=== PATIENT | male | born 1955 | race Asian ===

== ENCOUNTER 2024-08-03 17:07 | Inpatient (IN) | payer MEDICARE, MEDICAID ==
[~2024-08-03] VITALS: Ht 167.6 cm; Wt 70.3 kg
[~2024-08-03 17:07] MED LIST: CLOP75TA60 PO; LISI-893 PO; SIMV-261 PO
[2024-08-03] MEDS ORDERED: TAMS0.4C94 PO (18:14)
[2024-08-03] MEDS: ACETAMINOPHEN 500 MG TABLET PO ONE (18:46)
[2024-08-03 18:53] LABS: BASOPHILS % (AUTO) 0.3 % (0.0-2.0); EOSINOPHILS % (AUTO) 0.2 % (1.0-6.0); HEMOGLOBIN 14.8 g/dL (13.5-17.5); LYMPHOCYTES # (AUTO) 0.6 K/uL (1.0-4.8); LYMPHOCYTES % (AUTO) 8.1 % (22.0-44.0); MEAN CORPUSCULAR HEMOGLOBIN 28.2 pg (26.0-34.0); MEAN CORPUSCULAR HGB CONC 32.2 G/dL (31.0-37.0); MEAN CORPUSCULAR VOLUME 88 fL (80-100); MONOCYTES # (AUTO) 0.3 K/uL (0.1-1.0); MONOCYTES % (AUTO) 4.9 % (2.0-9.0); PLATELET COUNT (AUTO) 240 K/uL (150-450); RED BLOOD CELL COUNT(AUTO) 5.26 MIL/uL (4.50-5.90); RED CELL DISTRIBUTION WIDTH 13.9 % (11.5-14.5); WHITE BLOOD COUNT (AUTO) 6.9 K/uL (4.5-11.0)
[2024-08-03 18:54] LABS: COVID AG,FIA SOURCE NASAL SWAB
[2024-08-03 19:03] LABS: ANION GAP 10 mmol/L (8-16); CALCIUM, TOTAL 8.5 mg/dL (8.8-10.5); CARBON DIOXIDE 28 mmol/L (22-29); CHLORIDE 100 mmol/L (98-107); CREATININE 0.95 mg/dL (0.60-1.30); GLOMERULAR FILTR. RATE CALC > 60 mL/min (>60); GLUCOSE,RANDOM 166 mg/dL (70-110); POTASSIUM 3.6 mmol/L (3.5-5.1); SODIUM SERUM 138 mmol/L (136-145); UREA NITROGEN, BLOOD 10 mg/dL (7-18)
[2024-08-03 19:08] LABS: NEUTROPHILS % (AUTO) 86.5 % (40.0-70.0)
[2024-08-03 19:18] LABS: INFLUENZA TYPE A NEGATIVE FOR TYPE A (NEGATIVE); INFLUENZA TYPE B NEGATIVE FOR TYPE B (NEGATIVE); SARS-COV2 (COVID) ANTIGEN,FIA Negative (Negative)
[2024-08-03] MEDS: ASPIRIN 325 MG TABLET PO ONE (19:53)
[2024-08-03] MEDS: CLOPIDOGREL BISULFATE 75 MG TABLET PO ONE (19:54)
[2024-08-03 19:55] LABS: TROPONIN I-HIGH SENSITIVITY 54 ng/L (<76)
[2024-08-03] MEDS ORDERED: IOHEXOL 300 MG/ML 100 ML VIAL ONE (19:57)
[2024-08-03] MEDS ORDERED: 0.9% SODIUM CHLORIDE 10 ML SYRINGE IVP ONE (19:57)
[2024-08-03] MEDS ORDERED: SODIUM CHLORIDE 0.9% 100 ML ONE (19:57)
[2024-08-03] MEDS ORDERED: ZOLPIDEM TARTRATE 5 MG TABLET PO PRN (21:15)
[2024-08-03] MEDS ORDERED: MORPHINE SULFATE 2 MG/ML SYRINGE IVP PRN (21:15)
[2024-08-03] MEDS ORDERED: MAGNESIUM HYDROXIDE SUSPENSION 30 ML UDCUP PO PRN (21:15)
[2024-08-03] MEDS ORDERED: BISACODYL 10 MG RECTAL RECTAL SUPPOSITORY PR PRN (21:15)
[2024-08-03] MEDS ORDERED: ONDANSETRON HCL 4 MG/2 ML VIAL IVP PRN (21:15)
[2024-08-03] MEDS: HEPARIN SODIUM,PORCINE 5,000 UNITS/ML VIAL SQ SCH (23:12)
[2024-08-03 23:30] VITALS: BP 153/97; PULSE 69; RESP 17; TEMP 98.1; O2SAT 96
[2024-08-04 03:32] VITALS: BP 130/86; PULSE 66; RESP 16; TEMP 98.1; O2SAT 96
[2024-08-04] MEDS: ACETAMINOPHEN 325 MG TABLET PO PRN (03:37)
[2024-08-04 06:15] LABS: BASOPHILS % (AUTO) 0.4 % (0.0-2.0); EOSINOPHILS % (AUTO) 1.5 % (1.0-6.0); HEMOGLOBIN 14.9 g/dL (13.5-17.5); LYMPHOCYTES # (AUTO) 0.7 K/uL (1.0-4.8); LYMPHOCYTES % (AUTO) 12.8 % (22.0-44.0); MEAN CORPUSCULAR HEMOGLOBIN 28.8 pg (26.0-34.0); MEAN CORPUSCULAR HGB CONC 33.1 G/dL (31.0-37.0); MEAN CORPUSCULAR VOLUME 87 fL (80-100); MONOCYTES # (AUTO) 0.4 K/uL (0.1-1.0); MONOCYTES % (AUTO) 7.3 % (2.0-9.0); NEUTROPHILS # (AUTO) 4.3 K/uL (1.8-7.7); PLATELET COUNT (AUTO) 228 K/uL (150-450); RED BLOOD CELL COUNT(AUTO) 5.17 MIL/uL (4.50-5.90); RED CELL DISTRIBUTION WIDTH 13.6 % (11.5-14.5); WHITE BLOOD COUNT (AUTO) 5.5 K/uL (4.5-11.0)
[2024-08-04 06:39] LABS: ANION GAP 9 mmol/L (8-16); CALCIUM, TOTAL 8.7 mg/dL (8.8-10.5); CARBON DIOXIDE 27 mmol/L (22-29); CHLORIDE 104 mmol/L (98-107); CHOLESTEROL 166 mg/dL (131-200); CREATININE 0.79 mg/dL (0.60-1.30); GLOMERULAR FILTR. RATE CALC > 60 mL/min (>60); GLUCOSE,RANDOM 99 mg/dL (70-110); HDL CHOLESTEROL 56 mg/dL (40-60); LDL CHOL (CALC.) 96 mg/dL (0-130); POTASSIUM 3.5 mmol/L (3.5-5.1); SODIUM SERUM 140 mmol/L (136-145); THYROID STIMULATING HORMONE 0.69 uIU/mL (0.36-3.74); TRIGLYCERIDES 69 mg/dL (15-150); UREA NITROGEN, BLOOD 10 mg/dL (7-18)
[2024-08-04 08:00] VITALS: BP 131/78; PULSE 65; RESP 18; TEMP 97.8; O2SAT 98
[2024-08-04] MEDS: PANTOPRAZOLE SODIUM 40 MG DR TABLET PO SCH (09:17)
[2024-08-04] MEDS: ASPIRIN 81 MG CHEWABLE TABLET PO SCH (09:17)
[2024-08-04] MEDS: DOCUSATE SODIUM 100 MG CAPSULE PO SCH (09:17)
[2024-08-04 12:00] VITALS: BP 121/71; PULSE 70; RESP 16; TEMP 98.3; O2SAT 97
[2024-08-04 16:00] VITALS: BP 136/89; PULSE 70; RESP 15; TEMP 98.4; O2SAT 96
[2024-08-04] MEDS: HYDROCODONE/ACETAMINOPHEN 5-325 MG TABLET PO PRN (20:30)
[2024-08-04] MEDS: ATORVASTATIN CALCIUM 20 MG TABLET PO SCH (20:30)
[2024-08-04 20:33] VITALS: BP 126/73; PULSE 68; RESP 16; TEMP 98.5; O2SAT 98
[2024-08-04 22:40] VITALS: BP 134/88; PULSE 63; RESP 18; TEMP 98.2; O2SAT 97
[2024-08-05 05:02] VITALS: BP 132/76; PULSE 69; RESP 18; TEMP 98.3; O2SAT 98
[2024-08-05 06:57] LABS: BASOPHILS % (AUTO) 0.6 % (0.0-2.0); EOSINOPHILS % (AUTO) 1.9 % (1.0-6.0); HEMATOCRIT 46.1 % (41-53); HEMOGLOBIN 15.1 g/dL (13.5-17.5); LYMPHOCYTES # (AUTO) 0.9 K/uL (1.0-4.8); LYMPHOCYTES % (AUTO) 16.5 % (22.0-44.0); MEAN CORPUSCULAR HEMOGLOBIN 28.6 pg (26.0-34.0); MEAN CORPUSCULAR HGB CONC 32.8 G/dL (31.0-37.0); MEAN CORPUSCULAR VOLUME 87 fL (80-100); MONOCYTES # (AUTO) 0.4 K/uL (0.1-1.0); MONOCYTES % (AUTO) 7.1 % (2.0-9.0); NEUTROPHILS % (AUTO) 73.9 % (40.0-70.0); PLATELET COUNT (AUTO) 220 K/uL (150-450); RED BLOOD CELL COUNT(AUTO) 5.29 MIL/uL (4.50-5.90); RED CELL DISTRIBUTION WIDTH 13.8 % (11.5-14.5); WHITE BLOOD COUNT (AUTO) 5.3 K/uL (4.5-11.0)
[2024-08-05 07:08] LABS: ANION GAP 7 mmol/L (8-16); CALCIUM, TOTAL 8.7 mg/dL (8.8-10.5); CARBON DIOXIDE 27 mmol/L (22-29); CHLORIDE 105 mmol/L (98-107); CREATININE 0.92 mg/dL (0.60-1.30); GLOMERULAR FILTR. RATE CALC > 60 mL/min (>60); GLUCOSE,RANDOM 95 mg/dL (70-110); SODIUM SERUM 139 mmol/L (136-145); UREA NITROGEN, BLOOD 12 mg/dL (7-18)
[2024-08-05] MEDS: TAMSULOSIN HCL 0.4 MG CAPSULE PO SCH (08:13)
[2024-08-05] MEDS: CLOPIDOGREL BISULFATE 75 MG TABLET PO SCH (08:13)
[2024-08-05 08:14] VITALS: BP 130/76; PULSE 69; RESP 19; TEMP 98.4; O2SAT 98
[2024-08-05] MEDS ORDERED: ASPI-1444 PO (10:34)
[2024-08-05 16:00] VITALS: BP 122/69; PULSE 70; RESP 18; TEMP 98.5; O2SAT 97
[2024-08-05 20:30] VITALS: BP 142/87; PULSE 68; RESP 19; TEMP 99.6; O2SAT 97
[2024-08-06 04:36] VITALS: BP 127/70; PULSE 68; RESP 18; TEMP 98.3; O2SAT 98
[2024-08-06 07:11] LABS: BASOPHILS % (AUTO) 0.9 % (0.0-2.0); EOSINOPHILS % (AUTO) 2.4 % (1.0-6.0); HEMATOCRIT 45.5 % (41-53); HEMOGLOBIN 14.7 g/dL (13.5-17.5); LYMPHOCYTES # (AUTO) 0.8 K/uL (1.0-4.8); LYMPHOCYTES % (AUTO) 16.9 % (22.0-44.0); MEAN CORPUSCULAR HEMOGLOBIN 28.5 pg (26.0-34.0); MEAN CORPUSCULAR HGB CONC 32.4 G/dL (31.0-37.0); MEAN CORPUSCULAR VOLUME 88 fL (80-100); MONOCYTES # (AUTO) 0.3 K/uL (0.1-1.0); MONOCYTES % (AUTO) 6.6 % (2.0-9.0); NEUTROPHILS # (AUTO) 3.4 K/uL (1.8-7.7); NEUTROPHILS % (AUTO) 73.2 % (40.0-70.0); PLATELET COUNT (AUTO) 221 K/uL (150-450); RED BLOOD CELL COUNT(AUTO) 5.16 MIL/uL (4.50-5.90); WHITE BLOOD COUNT (AUTO) 4.6 K/uL (4.5-11.0)
[2024-08-06 07:24] LABS: ANION GAP 9 mmol/L (8-16); CALCIUM, TOTAL 8.7 mg/dL (8.8-10.5); CARBON DIOXIDE 27 mmol/L (22-29); CHLORIDE 103 mmol/L (98-107); CREATININE 0.83 mg/dL (0.60-1.30); GLOMERULAR FILTR. RATE CALC > 60 mL/min (>60); GLUCOSE,RANDOM 94 mg/dL (70-110); POTASSIUM 3.7 mmol/L (3.5-5.1); SODIUM SERUM 139 mmol/L (136-145); UREA NITROGEN, BLOOD 12 mg/dL (7-18)
[2024-08-06 08:00] VITALS: BP 136/76; PULSE 68; RESP 19; TEMP 98.1; O2SAT 99
== END 2024-08-06 14:30 | disposition home or self-care (01) | DRG 64 ==
LOC: EMS 17:07 → EDH 21:16 → 5S 23:30 → 4E 08-04 22:02
PROVIDERS: ADMIT Internal Medicine; ATTEND Internal Medicine
DX: I63.531 Cerebral infarction due to unspecified occlusion or stenosis of right posterior cerebral artery (principal); G93.41 Metabolic encephalopathy; G93.6 Cerebral edema; I10 Essential (primary) hypertension; Z20.822 Contact with and (suspected) exposure to COVID-19; R73.9 Hyperglycemia, unspecified; N40.0 Benign prostatic hyperplasia without lower urinary tract symptoms; I25.10 Atherosclerotic heart disease of native coronary artery without angina pectoris; G93.89 Other specified disorders of brain; E78.00 Pure hypercholesterolemia, unspecified; Z86.73 Personal history of transient ischemic attack (TIA), and cerebral infarction without residual deficits; Z95.1 Presence of aortocoronary bypass graft; Z79.01 Long term (current) use of anticoagulants; Z79.899 Other long term (current) drug therapy
CPT/HCPCS: 70450; 70551; 71046; 74177; 80048; 80061; 84443; 84484; 85025; 87804; 92610; 93005; 93306; 93880; 97163; 97165; 97535; 99285; G0378; J1644; J7050; Q9967; 36415-L1; 36415-TC